=== PATIENT | female | born 1960 | race Caucasian/White ===

== ENCOUNTER 2017-01-02 18:36 | Inpatient (IN) | payer OTHER ==
[~2017-01-02] VITALS: Ht 165.1 cm; Wt 109.8 kg
--- NOTE | ~2017-01-02 | EKG ---
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
--- NOTE | ~2017-01-02 | HC ---
[facility] [place] [address] CONSULTATION Name: SHANNON CHAMPAGNE Room #: 449-I [facility] IN M.R.#: [id number] Admission: 01/02/17 Attend Phys: Marc Kim MD Discharge: 01/04/17 Date of : 62 Report #: [id number] THIS REPORT FOR: //name// CC: Marc Romero MD DATE OF CONSULTATION: 01/02/2017 SURGEON: Ash Moore M.D. REASON FOR CONSULTATION: Dysphagia. HISTORY OF PRESENT ILLNESS: The patient is a 56-year-old female admitted through the Emergency Department today with complaint of constipation for 2 weeks. In discussion, the patient had been complaining in addition of dysphagia associated with a sensation of globus and frequent throat clearing. She notes that she has lost about 8 pounds recently. She has been referred to a field sales trainer as well as an research and development technician and has been set up to see an computerized mill recorder and have a sleep study done. The results of the EGD and colonoscopy reportedly were negative, but this is not available for review. The patient states that she has had several episodes where she has been awoken in the night with a nasty taste and has precipitated a laryngospasm, which was quite scary for her. This has happened more than once. 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 This has been ongoing per her 's report since July. PAST MEDICAL HISTORY: Significant for chronic constipation, chronic GI upset. She is a female. SOCIAL HISTORY: She is , has a supportive who is with her. She does not use alcohol or tobacco. CURRENT MEDICATIONS: Contained in the MAR. ALLERGIES: None. REVIEW OF SYSTEMS: Includes constipation, abdominal pain in addition to difficulty swallowing. PHYSICAL EXAMINATION: GENERAL: Shows a well-developed, obese 56-year-old female seen with her in her hospital room. VITAL SIGNS: Temperature 98.9, blood pressure 122/79, heart rate of 70, 16 respirations, she is 98% on room air. [facility] [address] [place] [address] CONSULTATION Name: SHANNON CHAMPAGNE Room #: 449-I [facility] IN [facility].#: [id number] Admission: 01/02/17 Attend Phys: Marc Kim MD Discharge: 01/04/17 Date of : 62 Report #: [id number] HEENT: Normocephalic. Pupils equal, round, reactive to light. Nasal exam shows a deviated septum to the left, nonobstructing, no polyps, no sinus percussive tenderness. Oral cavity, no mucosal lesions. The oropharynx shows surgically absent tonsils. Hypopharynx was examined. Flexible endoscopy shows paradoxical closure of the vocal cords with posterior glottic edema and erythema consistent with a reflux pattern. There is no mass. There is no paralysis. NECK: No adenopathy, no masses, no thyromegaly. NEUROLOGIC: Cranial nerves 2-12 intact. Motor and sensory and cerebellar exams are normal. LABORATORY DATA: Metabolic evaluation shows a white count of 8500 with a hemoglobin of 13.2. Serum electrolytes were negative with the exception of a low potassium of 2.8. The patient had a soft tissue x-ray of her neck, which was negative. Magnesium was in the normal range at 2, TSH was elevated consistent with hypothyroid at 14.92. CT neck was also done and reviewed by me, this was negative for any mass or other lesion. Barium swallow showed gross reflux into the upper esophagus with a hiatal hernia, swallowing function was negative otherwise. IMPRESSION: 1. Laryngopharyngeal reflux. 2. Globus. 3. Paradoxical closure of the vocal cords. 4. Repeated laryngospasm with gross gastroesophageal reflux disease. 5. Hiatal hernia. 6. Obesity. 7. Hypothyroidism. PLAN: 1. Synthroid replacement. 2. Proton pump inhibitor b.i.d. taken half an hour before meals. 3. GI consultation for this gross reflux and barium swallow in consideration of surgical consultation for a possible candidacy for LINX procedure or Amanda fundoplication. 4. Speech therapy consultation for the paradoxical movement of the vocal cords. 5. The patient and were reassured there is no mass or lesions, vocal cords were mobile, but this is an inflammatory phenomenon and should improve with treatment and aggressive antireflux treatment and aggressive speech therapy. 6. We also discussed weight loss as a component of this. Appreciate the consultation and ability to evaluate. I will not plan to follow [address] [address] CONSULTATION Name: SHANNON CHAMPAGNE Room #: 449-I DIS IN M.R.#: [id number] Admission: 01/02/17 Attend Phys: Marc Kim MD Discharge: 01/04/17 Date of : 62 Report #: [id number] on a regular basis in the hospital. I would like to see the patient back in my office in 6 weeks and followup and a card has been provided. <ELECTRONICALLY SIGNED> By: Ash Moore MD 01/05/17 1438 [id number] Ash Moore MD /nt
--- NOTE | ~2017-01-02 | O ---
[facility] [place] [address] OPERATIVE REPORT Name: SHANNON CHAMPAGNE Room #: 449-I [facility] IN M.R.#: [id number] Admission: 01/02/17 Attend Phys: Marc Kim MD Discharge: 01/04/17 Date of : 62 Report #: [id number] THIS REPORT FOR: //name// CC: Marc Kim Dr ____ ____ [facility] DATE OF SERVICE: 01/03/2017 SURGEON: Ash Moore MD PREOPERATIVE DIAGNOSES: Dysphagia and globus. POSTOPERATIVE DIAGNOSES: Dysphagia and globus. OPERATION PERFORMED: Flexible nasopharyngoscopy. DESCRIPTION OF PROCEDURE: In the patient's hospital room, the topical anesthesia was achieved with 4% lidocaine and 1% topical Gonzales-Synephrine nasal spray for decongestion. After an appropriate period, a 3.5 mm endoscope was advanced through the nose. Complete examination was made of the nasal cavity, nasopharynx, oropharynx, hypopharynx and larynx. The patient was noted to have significant posterior glottic edema and erythema with stranding of mucus consistent with a reflux pattern. The vocal cords were mobile. There is paradoxical closure on the vocal cords with inspiration. There was no mass, lesion. The base of tongue, epiglottis were otherwise normal. Scope was then removed. The patient tolerated the procedure well. There were no complications. There was no bleeding. <ELECTRONICALLY SIGNED> By: Ash Moore MD 01/05/17 1438 [id number] Ash Moore MD /nt
[2017-01-02 18:36] VITALS: BP 105/70
[2017-01-02 19:04] LABS: ABSOLUTE NEUTROPHILS 5.5 thou/uL (1.4-8.2); BASOPHILS 0.5 % (0.0-2.0); EOSINOPHILS 1.2 % (0.0-3.0); HEMATOCRIT 39.3 % (37.0-47.0); HEMOGLOBIN 13.2 gm/dL (12.0-15.0); LYMPHOCYTES 28.6 % (24.0-44.0); MCH 29.9 pg (26.0-34.0); MCHC 33.7 g/dL (28.0-37.0); MCV 88.7 fL (80.0-100.0); MONOCYTES 4.5 % (1.0-8.0); PLATELET COUNT 168 thou/uL (150-400); POLYS 65.2 % (36.0-66.0); RBC 4.43 mil/uL (4.20-5.00); RDW 13.8 % (10.5-14.5); WBC 8.5 thou/uL (4.0-11.0)
[2017-01-02 19:07] LABS: MANUAL DIFF NO
[2017-01-02] MEDS ORDERED: CLARITIN10 MG PO (19:11)
[2017-01-02] MEDS ORDERED: SINGULAIR 10 MG10 M1 PO (19:12)
[2017-01-02] MEDS ORDERED: FLONASE 0.05%50 MCG NASAL (19:12)
[2017-01-02] MEDS ORDERED: ZANTAC 150MG T150 MG PO (19:12)
[2017-01-02] MEDS ORDERED: ZOMIG2.5 MG PO (19:13)
[2017-01-02] MEDS ORDERED: LEVOTHYROXIN0.075 MG PO (19:14)
[2017-01-02] MEDS ORDERED: VERAPAMIL ER180 MG PO (19:14)
[2017-01-02] MEDS ORDERED: TOPAMAX50 MG PO (19:15)
[2017-01-02] MEDS ORDERED: IMITREX4 MG/0.5 M SQ (19:15)
[2017-01-02] MEDS ORDERED: OMEPRAZOLE40 MG PO (19:16)
[2017-01-02 19:22] LABS: ANION GAP 10 mmol/L (7-16); BUN 17 mg/dL (7-18); CALCIUM 9.2 mg/dL (8.5-10.1); CHLORIDE 102 mmol/L (98-107); CO2 25 mmol/L (21-32); CREATININE 1.5 mg/dL (0.6-1.0); GLUCOSE 133 mg/dL (74-106); NT-PRO BRAIN NAT PEPTIDE 89 pg/mL (<300); SODIUM 137 mmol/L (136-145); TROPONIN-I < 0.04 ng/mL (<0.04-0.07)
[2017-01-02 19:24] LABS: POTASSIUM 2.8 mmol/L (3.5-5.1)
[2017-01-02 20:45] VITALS: BP 120/76; BP 121/80
[2017-01-02 21:00] VITALS: BP 120/76
[2017-01-03] MEDS ORDERED: LEVOTHYROXIN0.088 MG PO (00:13)
[2017-01-03 01:02] LABS: URINE BILIRUBIN NEGATIVE (Negative); URINE BLOOD TRACE (Negative); URINE COLOR YELLOW; URINE GLUCOSE-RANDOM* NEGATIVE (Negative); URINE KETONES NEGATIVE (Negative); URINE LEUKOCYTES-REFLEX NEGATIVE (Negative); URINE PROTEIN (DIPSTICK) NEGATIVE (Negative); URINE SPECIFIC GRAVITY 1.025 (1.003-1.035); URINE UROBILINOGEN 0.2 E.U./dl (0.2-1.0)
[2017-01-03 04:05] VITALS: BP 132/82
[2017-01-03 04:36] LABS: CALCIUM 9.1 mg/dL (8.5-10.1); CREATININE 1.2 mg/dL (0.6-1.0); POTASSIUM 3.2 mmol/L (3.5-5.1)
[2017-01-03] MEDS ORDERED: HYDROCHLOROTHIA25 M2 PO (05:30)
[2017-01-03] MEDS ORDERED: TOPAMAX50 MG PO (05:31)
[2017-01-03 07:07] VITALS: BP 121/73
[2017-01-03 11:16] VITALS: BP 117/62
[2017-01-03 17:08] VITALS: BP 126/60
[2017-01-03 17:09] VITALS: BP 116/77; BP 122/79
[2017-01-03 19:15] VITALS: BP 116/76
[2017-01-04 03:36] VITALS: BP 133/79
[2017-01-04 07:59] VITALS: BP 128/88
[2017-01-04] MEDS ORDERED: PANTOPRAZOLE SO40 M1 PO (11:26)
[2017-01-04 11:36] VITALS: BP 128/88
== END 2017-01-04 13:10 | disposition home or self-care (01) | DRG 392 ==
LOC: ER 18:36 → 4W 20:04 → EROBS 20:04 → 4W 20:37
PROVIDERS: Nurse Practitioner; Nurse Practitioner Acute Care
PROC: 0CJY8ZZ Inspection of Mouth and Throat, Via Natural or Artificial Opening Endoscopic (ICD-10-PCS; principal; 2017-01-03)
DX: K21.9 Gastro-esophageal reflux disease without esophagitis (principal); N17.9 Acute kidney failure, unspecified; Z68.41 Body mass index [BMI] 40.0-44.9, adult; K59.00 Constipation, unspecified; F45.8 Other somatoform disorders; E87.6 Hypokalemia; E86.0 Dehydration; K44.9 Diaphragmatic hernia without obstruction or gangrene; E66.9 Obesity, unspecified; E03.9 Hypothyroidism, unspecified; I10 Essential (primary) hypertension; Z79.899 Other long term (current) drug therapy
CPT/HCPCS: 10045; 10047

== ENCOUNTER → 2017-03-31 | Outpatient (CLI) | payer OTHER ==
[~2017-03-31] MED LIST: CLARITIN10 MG PO; FLONASE 0.05%50 MCG NASAL; HYDROCHLOROTHIA25 M2 PO; IMITREX4 MG/0.5 M SQ; LEVOTHYROXIN0.075 MG PO; LEVOTHYROXIN0.088 MG PO; OMEPRAZOLE40 MG PO; PANTOPRAZOLE SO40 M1 PO; SINGULAIR 10 MG10 M1 PO; TOPAMAX50 MG PO; VERAPAMIL ER180 MG PO; ZANTAC 150MG T150 MG PO; ZOMIG2.5 MG PO
== END ==
LOC: RAD 16:32
DX: R06.00 Dyspnea, unspecified (principal); R06.02 Shortness of breath

== ENCOUNTER → 2017-04-16 | Outpatient (CLI) | payer OTHER | LOC: SLEEPLAB 14:30 | DX: G47.33 Obstructive sleep apnea (adult) (pediatric) (principal) ==

== ENCOUNTER → 2017-08-30 | Outpatient (CLI) | payer OTHER | LOC: RAD 15:28 | DX: R07.81 Pleurodynia (principal) ==